=== PATIENT | male | born 1975 | race Caucasian/White ===

== ENCOUNTER 2020-04-21 19:40 | Emergency (ER) | payer SELFPAY ==
[2020-04-21 19:44] VITALS: BP 156/89; PULSE 70; RESP 18; TEMP 36.7; O2SAT 97; BMI 22.9
--- NOTE | 2020-04-21 19:45 | CTR_ITS ---
PROCEDURE INFORMATION: Exam: CTA Right Lower Extremity With Contrast Exam date and time: 04/21/2020 8:51 PM Age: 45 years old Clinical indication: Injury or trauma; Other: Puncture wound to RT leg; Work related; Thigh or upper leg and patella or knee; Right; Foreign body involvement not specified; Injury details: Puncture wound near RT knee; Additional info: Right leg stab TECHNIQUE: Imaging protocol: CTA images of the Right lower extremity with intravenous contrast using CT angiography protocol. 3D rendering (Not supervised by radiologist): MIP and/or 3D reconstructed images were created by the technologist. Radiation optimization: All CT scans at this facility use at least one of these dose optimization techniques: automated exposure control; mA and/or kV adjustment per patient size (includes targeted exams where dose is matched to clinical indication); or iterative reconstruction. Contrast material: OMNI 350; Contrast volume: 95 ml; Contrast route: INTRAVENOUS (IV); COMPARISON: No relevant prior studies available. RADIATION DOSE METRICS: Total DLP (mGy-cm): 867.31 FINDINGS: Right femoral/popliteal arteries: No occlusion or significant stenosis. Right infrapopliteal arteries: No occlusion or significant stenosis. Other arteries: Muscular artery branch from the distal superficial femoral artery extending to the medial quadriceps musculature injury with pseudoaneurysm and contrast extravasation into the muscle. Bones/joints: No acute fracture. No dislocation. Soft tissues: Associated muscular enlargement and hematoma. CT/CT angio [facility] [id number] IMPRESSION: Muscular artery branch from the distal superficial femoral artery extending to the medial quadriceps musculature injury with pseudoaneurysm and contrast extravasation into the muscle. Associated muscular enlargement and hematoma. Radiation Dose CTDIVOL = (mGy): DLP = 867.31 (mGy-cm)
[2020-04-21 19:56] VITALS: RESP 18
[2020-04-21] MEDS: morphine 4 mg/mL SDV 1 mL IVP (19:56)
[2020-04-21 20:00] LABS: Basophils # 0.1 10^3/uL (0.0-0.1); Basophils % 0.2 %; Eosinophils # 0.5 10^3/uL (0.0-0.8); Eosinophils % 1.9 %; Hematocrit 42.4 % (42.0-52.0); Hemoglobin 14.4 g/dL (11.7-16.6); Lymphocytes # 4.6 10^3/uL (0.8-4.8); Lymphocytes % 18.7 %; Mean Corpuscular Hemoglobin 31.8 pg (28.0-34.0); Mean Corpuscular Volume 93.6 fL (80-94); Monocytes # 1.8 10^3/uL (0.2-0.9); Monocytes % 7.4 %; Neutrophils # 17.74 10^3/uL (1.8-7.7); Neutrophils % 71.4 %; Nucleated Red Blood Cells % 0 %; Platelet Count 318 10^3/cmm (130-400); Red Blood Count 4.53 10^6/uL (4.1-5.3); Red Cell Distribution Width 12.4 % (12.1-15.1); White Blood Count 24.9 10^3/uL (4.0-10.0)
[2020-04-21] MEDS: ondansetron 2 mg/ML SDV 2 mL 4 MG IVP (20:03)
[2020-04-21] MEDS: iohexol 350 mg/mL 100 mL Btl IV (21:03)
--- NOTE | 2020-04-21 21:19 | W.ED.WOUNDLC ---
HPI - Wound/Laceration General: Chief Complaint: Wound/Laceration Stated Complaint: arterial bleed controlled Time Seen by Provider: 04/21/20 19:41 Source: patient and EMS Mode of arrival: EMS Limitations: no limitations History of Present Illness: HPI narrative: 5-year-old male who states he was working today and stabbing self in the right inner portion of his thigh just proximal to his knee. He states this happened hours ago was seen at [facility] and then came back and he sent him here to rule out an arterial injury as he had increased bleeding. He states he does have pain at the site he rates a 5 out of 10. Denies any other injuries. Associated symptoms: Denies chills, fever(s), nausea or vomiting Review of Systems Const: Denies: fever(s), chills, body aches or change in appetite Eyes: Denies: blurry vision or eye discomfort ENMT: Denies: throat pain or dental pain Card: Denies: chest pain Resp: Denies: dyspnea GI: Denies: abdominal pain, nausea, vomiting or diarrhea : Denies: dysuria Musc: Denies: neck pain or back pain Skin/Breast: Denies: rash Neuro: Denies: headache(s) Psych: Denies: depression Brody/Lymph: Denies: easy bruising All/Imm: Denies: urticaria Physical Exam Const: COMMON NORMALS: no acute distress, patient oriented x3 and healthy appearing HENMT: COMMON NORMALS: normocephalic and atraumatic HEAD & SCALP: normocephalic and atraumatic Eye: COMMON NORMALS: Equal, round and reactive pupils present and EOMs intact bilaterally PUPIL: Yes Equal, round and reactive pupils present Neck/C-Spine: COMMON NORMALS: full ROM and supple Chest: COMMONS NORMALS: normal inspection of the chest and normal palpation of entire chest wall Resp: COMMON NORMALS: normal respiratory effort, No retractions, No use of accessory muscles and clear to auscultation bilaterally AUSCULTATION: clear to auscultation bilaterally Cardio: COMMON NORMALS: regular rate, regular rhythm and No murmurs present (Cardio) RATE: regular rate RHYTHM: regular rhythm GI: COMMON NORMALS: Normal to inspection, nondistended, normoactive bowel sounds present, Soft to palpation, non-tender and no masses PALPATION: Yes Soft to palpation Extremity: COMMON NORMALS: normal to inspection and full ROM Neuro: COMMON NORMALS: patient oriented x3, moves all extremities and no focal motor deficits Psych: COMMON NORMALS: mental status grossly normal, Normal thought process present and cooperative THOUGHT PROCESS: Normal thought process present Skin: COMMON NORMALS: no wounds NARRATIVE SKIN EXAM: Roughly 1 to 2 cm laceration over right distal thigh that is been sutured closed. He has no active bleeding from the site. Does have a small hematoma with no palpable thrill. Distal pulses and sensation are intact. Course Vital Signs: Vital signs: Vital Signs Temperature 98.0 F 04/21/20 19:44 Pulse Rate 70 04/21/20 19:44 Respiratory Rate 18 04/21/20 19:56 Blood Pressure 156/89 04/21/20 19:44 Pulse Oximetry 97 04/21/20 19:44 MDM - Wound/Laceration MDM Narrative: Medical decision making narrative: Patient presents here with laceration to his right leg. He did catch a muscular branch on the artery. He has no serious bleeding here. Distal pulses intact. Hematoma is not expanding. Will compress with an Michael wrap and informed him to rest and to elevate his leg. Spoke to vascular surgeon Dr. Doran who felt like he did not need any intervention. He is stable for discharge. I informed him he starts bleeding again or has any numbness or discoloration of his foot he is return immediately. He understands agrees to plan. Lab Data: Labs: Lab Results 04/21/20 Range/Units 19:56 WBC 24.9 H (4.0-10.0) 10^3/ uL RBC 4.53 (4.1-5.3) 10^6/u L Hgb 14.4 (11.7-16.6) g/dL Hct 42.4 (42.0-52.0) % MCV 93.6 (80-94) fL MCH 31.8 (28.0-34.0) pg MCHC 34.0 (30.0-36.0) g/dL RDW 12.4 (12.1-15.1) % Plt Count 318 (130-400) 10^3/c mm MPV 10.0 (7.4-10.4) fL Neut % (Auto) 71.4 % Lymph % (Auto) 18.7 % [place] % (Auto) 7.4 % Eos % (Auto) 1.9 % Baso % (Auto) 0.2 % Neut # (Auto) 17.74 H (1.8-7.7) 10^3/u L Lymph # (Auto) 4.6 (0.8-4.8) 10^3/u L [place] # (Auto) 1.8 H (0.2-0.9) 10^3/u L Eos # (Auto) 0.5 (0.0-0.8) 10^3/u L Baso # (Auto) 0.1 (0.0-0.1) 10^3/u L Nucleated RBC % (a uto) 0 % Nucleated RBCs # 0.0 /100WBC Imaging Data^: Other CT: Attestation: I personally reviewed and interpreted this imaging study as follows: Radiologist's impression: [place] [address] CT Scan Report Signed with Addenda Patient: Volodymyr Tirado Unit #: [id number] : 1975 Age/Sex: 45 / M ADM Date: 04/21/20 Loc: ER Room/Bed: Attending Dr: Ordering Provider/Ordering MD: Jessenia Degroot MD Date of Service: 04/21/20 Procedure(s): [place] [address] Accession Number(s): [id number] Report Number: [id number]/[place] [address] THIS REPORT CONTAINS FINDINGS THAT MAY BE CRITICAL TO PATIENT CARE. The study was personally discussed on the telephone with care provider Dr. Rodriguez on 04/21/2020 9:37 PM CDT. The results were understood and acknowledged. Radiation Dose CTDIVOL = (mGy): DLP = 867.31 (mGy-cm) Addendum Dictated By: Lucio Mccray MD Addendum Signed By: Lucio Mccray MD Signed Date/Time: 04/21/20 21 38 Addendum Cosigned By: PROCEDURE INFORMATION: Exam: CTA Right Lower Extremity With Contrast Exam date and time: 04/21/2020 8:51 PM Age: 45 years old Clinical indication: Injury or trauma; Other: Puncture wound to RT leg; Work related; Thigh or upper leg and patella or knee; Right; Foreign body involvement not specified; Injury details: Puncture wound near RT knee; Additional info: Right leg stab TECHNIQUE: Imaging protocol: CTA images of the Right lower extremity with intravenous contrast using CT angiography protocol. 3D rendering (Not supervised by radiologist): MIP and/or 3D reconstructed images were created by the technologist. Radiation optimization: All CT scans at this facility use at least one of these dose optimization techniques: automated exposure control; mA and/or kV adjustment per patient size (includes targeted exams where dose is matched to clinical indication); or iterative reconstruction. Contrast material: OMNI 350; Contrast volume: 95 ml; Contrast route: INTRAVENOUS (IV); COMPARISON: No relevant prior studies available. RADIATION DOSE METRICS: Total DLP (mGy-cm): 867.31 FINDINGS: Right femoral/popliteal arteries: No occlusion or significant stenosis. Right infrapopliteal arteries: No occlusion or significant stenosis. Other arteries: Muscular artery branch from the distal superficial femoral artery extending to the medial quadriceps musculature injury with pseudoaneurysm and contrast extravasation into the muscle. Bones/joints: No acute fracture. No dislocation. Soft tissues: Associated muscular enlargement and hematoma. CT/CT angio [facility] [id number] IMPRESSION: Muscular artery branch from the distal superficial femoral artery extending to the medial quadriceps musculature injury with pseudoaneurysm and contrast extravasation into the muscle. Associated muscular enlargement and hematoma. Discharge Plan Discharge Patient Disposition: Home Clinical Impression: Laceration Condition: Stable Prescriptions: [place] 5-325 mg tablet 1 tab PO Q6H PRN (Reason: pain) Qty: 14 RF: 0 ondansetron 4 mg tablet,disintegrating 4 mg PO Q6H PRN (Reason: nausea and vomiting) Qty: 14 RF: 0 Discharge Orders: Discharge Order (Routine); Ordered 04/21/20 Ordered By: Jessenia Degroot Referrals: Frederick Doran MD [Physician] - 4-7 days Discharge Diet: Advance as tolerated Discharge Activity: Resume usual activity Patient Instructions: Laceration (ED) Stand Alone Forms: Work/School Release Coding Level of Care Code ED Child Welfare Social Worker for Chg Fwd Exam Comprehensive
[2020-04-21 23:02] VITALS: BP 142/88; PULSE 67; RESP 18; O2SAT 99
--- NOTE | 2020-04-21 23:05 | PC.NURSE ---
i agree with this assessment
--- NOTE | 2020-04-22 09:02 | DCPLANNER ---
senior clinical data manager had message to schedule a follow up appointment for patient with Dr. Doran at [facility]. senior clinical data manager called [facility], spoke with Syl, gave clinic patients information. A follow up appointment was scheduled for Tuesday, April 28, 2020 at 3:[address] Doran. senior clinical data manager gave patients the appointment information.
--- NOTE | 2020-05-07 15:31 | DCPLANNER ---
Patient had an appointment scheduled for 04.28.20 with [facility] - patient did not attend appointment.
== END 2020-04-21 23:06 | disposition home or self-care (01) ==
PROVIDERS: Emergency Provider Emergency Medicine
DX: S71.111A Laceration without foreign body, right thigh, initial encounter (principal); W45.8XXA Other foreign body or object entering through skin, initial encounter; Y99.0 Civilian activity done for income or pay
CPT/HCPCS: 12345; 36415; 73706; 85025; 96374; 96375; 99281; 99283; J2270; J2405; Q9967